=== PATIENT | male | born 1960 | race Caucasian/White ===

== ENCOUNTER 2021-01-22 05:30 | Day surgery (SDC) | payer BC ==
[2021-01-19 10:38] VITALS: BP 140/78
[2021-01-22] VITALS (16 sets, daily range): BP systolic 110–147; BP diastolic 62–84
[~2021-01-22] VITALS: Ht 182.9 cm; Wt 101.2 kg
[~2021-01-22 05:30] MED LIST: AMLO-257 PO; ATOR10TA69 PO; ESOM20TA PO; LISI40TA9 PO
[2021-01-22] MEDS ORDERED: LACTATED RINGERS 1000ML 1,000 ML IV ONE (06:04)
[2021-01-22] MEDS: CEFTRIAXONE 1G VIAL ONE ×2 (06:15→15:04)
[2021-01-22] MEDS ORDERED: LIDOCAINE PF 100MG/5ML (2%) SYRINGE 5ML ONE (06:37)
[2021-01-22] MEDS ORDERED: ROCURONIUM 10MG/1ML SYR 10 MG/ML ML ONE (06:38)
[2021-01-22] MEDS ORDERED: PROPOFOL 10 MG/ML 20ML VIAL IV ONE ×2 (06:38→07:00)
[2021-01-22] MEDS ORDERED: MIDAZOLAM HCL 1 MG/ML 2ML VIAL ONE (06:38)
[2021-01-22] MEDS ORDERED: FENTANYL CITRATE PF 50 MCG/1 ML 2ML VIAL ONE (06:39)
[2021-01-22] MEDS ORDERED: ONDANSETRON 4MG INJ ONE (06:40)
[2021-01-22] MEDS ORDERED: IOHEXOL-350 50ML VIAL IV ONE (06:48)
[2021-01-22] MEDS ORDERED: EPHEDRINE SULFATE 50 MG/ML AMPULE ONE (06:57)
[2021-01-22] MEDS ORDERED: PHENYLEPHRINE HCL 10 MG/ML 1ML VIAL IV ONE (07:11)
[2021-01-22] MEDS ORDERED: GLYCOPYRROLATE 1 MG/5 ML SYRINGE ONE (07:13)
[2021-01-22] MEDS ORDERED: PHENAZOPYRIDINE HCL 200 MG TABLET ONE (08:29)
[2021-01-26] MEDS ORDERED: CEFTRIAXONE 1G VIAL IVP SCH (06:00)
== END 2021-01-22 09:15 | disposition home or self-care (01) ==
LOC: DAH 05:30
PROVIDERS: ATTEND Urology
DX: N13.2 Hydronephrosis with renal and ureteral calculous obstruction (principal); Z20.822 Contact with and (suspected) exposure to COVID-19; N40.0 Benign prostatic hyperplasia without lower urinary tract symptoms; N32.89 Other specified disorders of bladder; I10 Essential (primary) hypertension; K21.9 Gastro-esophageal reflux disease without esophagitis; M17.10 Unilateral primary osteoarthritis, unspecified knee; Z88.6 Allergy status to analgesic agent
CPT/HCPCS: 36415; 52356; 74018; 82360; 87426; A4215; A4221; A4222; A4223; A4344; A4358; A4510; A4600; A4657; A4663; A6260; C1758 ×2; C2617; J0696; J2001; J2250; J2370; J2405; J2704; J3010; J3490 ×2; J7030; J7120; Q9967